=== PATIENT | male | born 1975 | race Caucasian/White ===

== ENCOUNTER 2018-09-06 16:08 | Emergency (ER) | payer OTHER ==
[2018-09-06] MEDS ORDERED: HYDROCODONE/APAP 10/325 TAB ONE (16:46)
--- NOTE | 2018-09-06 16:53 | RAD REPORT ---
EXAM DESCRIPTION: RAD - Hand Right 3 View - 09/06/2018 4:44 pm CLINICAL HISTORY: Trauma to the distal third digit COMPARISON: None. FINDINGS: Soft tissue amputation present at the tip of the third digit. There is bone loss from the distal tip of the third distal phalanx. No other fracture seen. Advanced for age degenerative change present at the fifth digit PIP joint del ete select IMPRESSION: Soft tissue amputation tip of the right hand distal third digit with amputation of the d istal most portion of the third digit tuft.
--- NOTE | 2018-09-06 17:03 | ER ---
Nurse's Notes [facility] Name: Hayes Fowler Age: 43 yrs Sex: Male : 1975 Arrival Date: 09/06/2018 Time: 16:09 Bed 8 Private MD: Diagnosis: Soft tissue amputation and distal tuft amputation of right middle finger Presentation: 09/06 16:19 Presenting complaint: Patient states: He got his right middle finger caught in the aj1 garage door as it was going up. Avulsion noted to right middle finger. Transition of care: patient was not received from another setting of care. Onset of symptoms was September 06, 2018. Risk Assessment: Do you want to hurt yourself or someone else? Patient reports no desire to harm self or others. Initial Sepsis Screen: Does the patient meet any 2 criteria? No. Patient's initial sepsis screen is negative. Does the patient have a suspected source of infection? No. Patient's initial sepsis screen is negative. Care prior to arrival: None. 16:19 Method Of Arrival: Ambulatory [facility] 16:19 Acuity: MANNY 3 aj1 Triage Assessment: 16:20 General: Appears in no apparent distress. uncomfortable, Behavior is calm, cooperative, aj1 appropriate for age. Pain: Complains of pain in palmar aspect of distal phalanx of right middle finger Pain currently is 6 out of 10 on a pain scale. Neuro: Level of Consciousness is awake, alert, obeys commands. Cardiovascular: Patient's skin is warm and dry. Respiratory: Airway is patent Respiratory effort is even, unlabored, Respiratory pattern is regular, symmetrical. Musculoskeletal: Range of motion: intact in all extremities. Injury Description: Avulsion sustained to palmar aspect of distal phalanx of right middle finger. Historical: - Allergies: 18:17 CAMPHOR; ph - Home Meds: 16:20 None [Active]; aj1 - PMHx: 16:20 None; aj1 - PSHx: 16:20 None; aj1 - Immunization history:: Flu vaccine is up to date. - Social history:: Smoking status: Patient/guardian denies using tobacco. - Ebola Screening: : Patient denies travel to an Ebola-affected area in the 21 days before illness onset. Screenin:38 Abuse screen: Denies threats or abuse. Denies injuries from another. Nutritional ph screening: No deficits noted. Tuberculosis screening: No symptoms or risk factors identified. Fall Risk No fall in past 12 months (0 pts). Assessment: 16:36 General: Appears in no apparent distress. uncomfortable, well groomed, Behavior is ph calm, cooperative, appropriate for age. Pain: Complains of pain in right middle finger. Neuro: Level of Consciousness is awake, alert, obeys commands, Oriented to person, place, time, situation. Cardiovascular: Capillary refill < 3 seconds in bilateral fingers Patient's skin is warm and dry. Respiratory: Airway is patent Respiratory effort is even, unlabored. Derm: Skin is intact, is healthy with good turgor, Skin is pink, warm \T\ dry. Musculoskeletal: Circulation, motion, and sensation intact. Range of motion: intact in all extremities. Injury Description: Avulsion sustained to palmar aspect of distal phalanx of right middle finger. 17:30 Reassessment: Patient appears in no apparent distress at this time. Patient and/or ph family updated on plan of care and expected duration. Pain level reassessed. Patient is alert, oriented x 3, equal unlabored respirations, skin warm/dry/pink. Vital Signs: 16:20 BP 148 / 91; Pulse 81; Resp 18; Temp 97.9(O); Pulse Ox 98% on R/A; Weight 104.33 kg aj1 (R); Height 6 ft. 0 in. (182.88 cm) (R); 18:00 BP 137 / 81; Pulse 76; Resp 18; Temp 97.2; Pulse Ox 99% on R/A; ph 16:20 Body Mass Index 31.19 (104.33 kg, 182.88 cm) aj1 ED Course: 16:09 Patient arrived in ED. as 16:14 Benny Santoro NP is PHCP. pm1 16:14 Mark Weeks MD is Attending Physician. pm1 16:19 Triage completed. aj1 16:20 Arm band placed on Patient Patient triaged in ER bed 8. aj1 16:25 Rhea Thomas, JOHN is Primary Nurse. ph 16:39 Patient has correct armband on for positive identification. Bed in low position. Call light in reach. 16:41 Hand Right 3 View XRAY In Process Unspecified. EDMS 17:00 Tyler Rios MD is Referral Physician. pm1 17:30 Aluminum finger splint applied to right middle finger. Wound care: to avulsion located ph on palmar aspect of distal phalanx of right middle finger was cleaned with Hibiclens, irrigated with normal saline, dressed with Neosporin, 4X4s, wet to dry dressing, Patient tolerated well. 18:07 No provider procedures requiring assistance completed. Patient did not have IV access ph during this emergency room visit. Administered Medications: 16:39 Drug: [place] 10 mg-325 mg 1 tabs Route: PO; ph 18:04 Follow up: Response: No adverse reaction; Pain is decreased ph 17:10 Drug: Lidocaine (1 %) 1 vials Volume: 5 ml; Route: Infiltration; ph 18:06 Follow up: Response: No adverse reaction ph 17:18 Drug: Tetanus-Diphtheria Toxoid Adult 0.5 ml {Senior Regulatory Affairs Specialist: [employer]. Exp: ph 04/22/2020. Lot #: [id number]. } Route: IM; Site: right vastus lateralis; 18:04 Follow up: Response: No adverse reaction ph 17:20 Drug: Ancef 1 grams Route: IM; Site: right deltoid; ph 18:05 Follow up: Response: No adverse reaction ph Outcome: 17:02 Discharge ordered by MD. pm1 18:11 Discharged to home ambulatory, with significant other. ph 18:11 Condition: good 18:11 Discharge instructions given to patient, Instructed on discharge instructions, follow up and referral plans. medication usage, wound care, Demonstrated understanding of instructions, follow-up care, medications, wound care, Prescriptions given X 2. 18:13 Patient left the ED. ph Signatures: Dispatcher [employer] EDMS Caryn Cantu RN RN aj1 Deanna Solis Patricia, RN RN ph Benny Santoro, MOTH EXTERMINATOR MOTH EXTERMINATOR pm1 Corrections: (The following items were deleted from the chart) 18:17 16:20 Allergies: Carmax; aj1 ph
--- NOTE | 2018-09-06 17:03 | EDPHYS ---
Physician Documentation [facility] Name: Hayes Fowler Age: 43 yrs Sex: Male : 1975 Arrival Date: 09/06/2018 Time: 16:09 Bed 8 Private MD: ED Physician Mark Weeks HPI: 09/06 16:33 This 43 yrs old Male presents to ER via Ambulatory with complaints of Right pm1 Middle Finger Injury. 16:33 Mechanism of injury: Finger got caught between two doors. Associated injuries: The pm1 patient sustained right middle finger. Onset: The symptoms/episode began/occurred just prior to arrival. The patient has not experienced similar symptoms in the past. The patient has not recently seen a physician. Historical: - Allergies: 18:17 CAMPHOR; ph - Home Meds: 16:20 None [Active]; aj1 - PMHx: 16:20 None; aj1 - PSHx: 16:20 None; aj1 - Immunization history:: Flu vaccine is up to date. - Social history:: Smoking status: Patient/guardian denies using tobacco. - Ebola Screening: : Patient denies travel to an Ebola-affected area in the 21 days before illness onset. ROS: 16:33 Constitutional: Negative for fever, chills, and weight loss, Eyes: Negative for injury, pm1 pain, redness, and discharge, ENT: Negative for injury, pain, and discharge, Neck: Negative for injury, pain, and swelling, Cardiovascular: Negative for chest pain, palpitations, and edema, Respiratory: Negative for shortness of breath, cough, wheezing, and pleuritic chest pain, Abdomen/GI: Negative for abdominal pain, nausea, vomiting, diarrhea, and constipation, Back: Negative for injury and pain, : Negative for injury, bleeding, discharge, and swelling. 16:33 Neuro: Negative for headache, weakness, numbness, tingling, and seizure. 16:33 MS/extremity: Positive for avulsion to tip of right middle finger. Right finger nail intact with brisk capillary refill. Nail bed pink, Negative for decreased range of motion. 16:33 Skin: Positive for avulsion to tip of right middle finger. Exam: 16:45 Constitutional: This is a well developed, well nourished patient who is awake, alert, pm1 and in no acute distress. Head/Face: Normocephalic, atraumatic. Neck: Trachea midline, no thyromegaly or masses palpated, and no cervical lymphadenopathy. Supple, full range of motion without nuchal rigidity, or vertebral point tenderness. No Meningismus. Chest/axilla: Normal chest wall appearance and motion. Nontender with no deformity. No lesions are appreciated. Cardiovascular: Regular rate and rhythm with a normal S1 and S2. No gallops, murmurs, or rubs. Normal PMI, no JVD. No pulse deficits. Respiratory: Lungs have equal breath sounds bilaterally, clear to auscultation and percussion. No rales, rhonchi or wheezes noted. No increased work of breathing, no retractions or nasal flaring. Back: No spinal tenderness. No costovertebral tenderness. Full range of motion. 16:45 Musculoskeletal/extremity: Extremities: grossly normal except: noted in the distal tip of third right middle finger: amputation. 16:45 Skin: Appearance: normal except for affected area, injury, amputation of distal tip of right third middle finger. Vital Signs: 16:20 BP 148 / 91; Pulse 81; Resp 18; Temp 97.9(O); Pulse Ox 98% on R/A; Weight 104.33 kg [facility] (R); Height 6 ft. 0 in. (182.88 cm) (R); 18:00 BP 137 / 81; Pulse 76; Resp 18; Temp 97.2; Pulse Ox 99% on R/A; ph 16:20 Body Mass Index 31.19 (104.33 kg, 182.88 cm) [facility] MDM: 16:17 Patient medically screened. [facility] 16:59 Data reviewed: vital signs. Data interpreted: Pulse oximetry: on room air is 98 %. pm1 Interpretation: normal. Counseling: I had a detailed discussion with the patient and/or guardian regarding: the historical points, exam findings, and any diagnostic results supporting the discharge/admit diagnosis, radiology results, the need for outpatient follow up, for definitive care, a hand specialist, to return to the emergency department if symptoms worsen or persist or if there are any questions or concerns that arise at home. 17:18 Physician consultation: Tyler Rios MD was contacted at 17:19, regarding consult, pm1 patient's condition, and will see patient in office, 9 AM at [facility]. tomorrow, Dr. Weeks contacted Dr. Rios. 09/06 16:21 Order name: Hand Right 3 View XRAY; Complete Time: 16:54 pm1 09/06 16:21 Order name: Wound Care; Complete Time: 18:03 pm1 Administered Medications: 16:39 Drug: [place] 10 mg-325 mg 1 tabs Route: PO; ph 18:04 Follow up: Response: No adverse reaction; Pain is decreased ph 17:10 Drug: Lidocaine (1 %) 1 vials Volume: 5 ml; Route: Infiltration; ph 18:06 Follow up: Response: No adverse reaction ph 17:18 Drug: Tetanus-Diphtheria Toxoid Adult 0.5 ml {[employer] Panels Plater: [employer]. Exp: ph 04/22/2020. Lot #: [id number]. } Route: IM; Site: right vastus lateralis; 18:04 Follow up: Response: No adverse reaction ph 17:20 Drug: Ancef 1 grams Route: IM; Site: right deltoid; ph 18:05 Follow up: Response: No adverse reaction ph Disposition: 09/07 06:51 Co-signature as Attending Physician, Mark Weeks MD I agree with the assessment and noe plan of care. Disposition: 09/06/18 17:02 Discharged to Home. Impression: Soft tissue amputation and distal tuft amputation of right middle finger. - Condition is Stable. - Discharge Instructions: Traumatic Finger Amputation. - Prescriptions for Keflex 500 mg Oral Capsule - take 1 capsule by ORAL route every 6 hours for 10 days; 40 capsule. Tylenol- Codeine #3 300-30 mg Oral Tablet - take 2 tablets by ORAL route every 6 hours As needed; 20 tablet. - Medication Reconciliation Form, Thank You Letter, Antibiotic Education, Prescription Opioid Use form. - Follow up: Tyler Rios MD; When: Tomorrow, 09/07/2018 at 9AM; Reason: Recheck today's complaints, Continuance of care, Re-evaluation by your physician. - Problem is new. - Symptoms have improved. Signatures: Dispatcher [employer] EDMS Caryn Cantu RN RN aj1 Mark Weeks MD MD cha Hall, Patricia, RN RN ph Benny Santoro, MOBILE HEALTH VEHICLE OPERATOR MOBILE HEALTH VEHICLE OPERATOR pm1 Corrections: (The following items were deleted from the chart) 09/06 17:29 17:02 09/06/2018 17:02 Discharged to Home. Impression: Soft tissue amputation and pm1 distal tuft amputation of right middle finger. Condition is Stable. Forms are Medication Reconciliation Form, Thank You Letter, Antibiotic Education, Prescription Opioid Use. Follow up: Tyler Rios; When: 1 - 2 days; Reason: Recheck today's complaints, Continuance of care, Re-evaluation by your physician. Problem is new. Symptoms have improved. pm1 18:13 17:29 09/06/2018 17:02 Discharged to Home. Impression: Soft tissue amputation and ph distal tuft amputation of right middle finger. Condition is Stable. Discharge Instructions: Traumatic Finger Amputation. Prescriptions for Keflex 500 mg Oral Capsule - take 1 capsule by ORAL route every 6 hours for 10 days; 40 capsule, Tylenol-Codeine #3 300-30 mg Oral Tablet - take 2 tablets by ORAL route every 6 hours As needed; 20 tablet. and Forms are Medication Reconciliation Form, Thank You Letter, Antibiotic Education, Prescription Opioid Use. Follow up: Tyler Rios; When: Tomorrow, 09/07/2018 at 9AM; Reason: Recheck today's complaints, Continuance of care, Re-evaluation by your physician. Problem is new. Symptoms have improved. pm1 18:17 16:20 Allergies: Carmax; aj1 ph
[2018-09-06] MEDS ORDERED: CEFAZOLIN SODIUM 1 GM/VIAL ONE (17:20)
[2018-09-06] MEDS ORDERED: TETANUS & DIPHTHERIA TOX,ADULT 0.5 ML VIAL ONE (17:20)
[2018-09-06] MEDS ORDERED: WATER FOR INJ,STERILE 10 ML ONE (17:20)
[2018-09-06] MEDS ORDERED: LIDOCAINE 1% MPF 5 ML VIAL ONE (17:28)
[2018-09-06 18:18] VITALS: BP 148/91; TEMP 97.9; O2SAT 98
== END 2018-09-06 18:13 | disposition home or self-care (01) ==
LOC: ER 16:08
DX: S68.122A Partial traumatic metacarpophalangeal amputation of right middle finger, initial encounter (principal); W23.0XXA Caught, crushed, jammed, or pinched between moving objects, initial encounter; Z23 Encounter for immunization
CPT/HCPCS: 90471; 90714; 96372; 99284; J0690

== ENCOUNTER 2018-09-07 11:14 | Day surgery (SDC) | payer OTHER ==
[2018-09-07] MEDS ORDERED: Ringers Lactate 1,000 ML IV ONE (11:38)
[2018-09-07] MEDS ORDERED: CEFAZOLIN/SWI 1gm 1 GM/10 ML SYR ONE (11:38)
[2018-09-07] MEDS ORDERED: LIDOCAINE 1% MPF 5 ML VIAL ONE (11:58)
[2018-09-07] MEDS ORDERED: MIDAZOLAM HCL 2 MG/2 ML INJ ONE (11:58)
[2018-09-07] MEDS ORDERED: FENTANYL CITR 100 MCG/2 ML ONE (11:58)
[2018-09-07] MEDS ORDERED: PROPOFOL 200 MG/20 ML VIAL IV ONE (11:58)
[2018-09-07] MEDS ORDERED: KETOROLAC 30 MG/ML INJ ONE (12:49)
[2018-09-07] MEDS ORDERED: ONDANSETRON 4 MG/2 ML VIAL ONE (12:56)
[2018-09-07 13:08] VITALS: O2SAT 99
[2018-09-07] MEDS ORDERED: MEPERIDINE HCL 25 MG/0.5 ML ONE (13:14)
[2018-09-07] MEDS: MEPERIDINE HCL 50 MG/ML AMP ONE ×2 (13:15→13:23)
[2018-09-07 13:27] VITALS: BP 128/85; TEMP 98.2
[2018-09-07] MEDS ORDERED: CODEINE 30MG/APAP 300MG TAB ONE (13:59)
--- NOTE | 2018-09-07 23:44 | OP ---
Surgeon: Tyler Rios MD Preoperative Diagnosis: Amputation of the tip of the right middle finger. Postoperative Diagnosis: Amputation of the tip of the right middle finger. Procedure Performed: Debridement of skin, subcutaneous tissue, and bone; V-Y flap closure. Anesthesia: General. Procedure In Detail: After satisfactory induction of general anesthesia, right hand prepped with Bet adine scrub, Betadine paint, dry sterile drapes applied in the usual manner. Hand placed on the Rota diane table. Six gloves were used on the digital tourniquet and then periosteal elevator was used to r emove the nail plate and then skin and subcutaneous tissue were debrided as needed. The bone was cut with a bone cutter, filed with a file, irrigated with saline. The V-Y flap outline advanced, sewn w ith 4-0 Prolene simple sutures. The nail was sewn back proximally with 4-0 Prolene. Tourniquet rele ased. Dressed with Xeroform and 2-inch Alina. The patient tolerated the procedure well and returned to recovery. ALVAREZ/BRAYDEN Voice ID: [id number] Report ID: [id number]
== END 2018-09-07 14:20 | disposition home or self-care (01) ==
LOC: OR 11:14
PROVIDERS: ATTEND Specialist
PROC: 0HXFXZZ Transfer Right Hand Skin, External Approach (ICD-10-PCS; 2018-09-07)
PROC: 0PBT0ZZ Excision of Right Finger Phalanx, Open Approach (ICD-10-PCS; principal; 2018-09-07 12:00)
DX: S68.122A Partial traumatic metacarpophalangeal amputation of right middle finger, initial encounter (principal); X58.XXXA Exposure to other specified factors, initial encounter
CPT/HCPCS: J0690; J2175; J2250; J2405; J2704; J3010